=== PATIENT | female | born 1995 | race Caucasian/White ===

== ENCOUNTER 2017-03-07 13:10 | Outpatient (CLI) | payer BC ==
[~2017-03-07] VITALS: Ht 152.4 cm; Wt 45.9 kg
[2017-03-07 13:34] VITALS: BP 108/65; PULSE 85; RESP 16; Ht 152.4 cm; Wt 45.9 kg
--- NOTE | 2017-03-07 14:05 | PN ---
Date/Time of Note Date/Time of Note DATE: 03/07/17 TIME: 13:55 Assessment/Plan Assessment/Plan Assessment/Plan [facility] Progress Note Date of Service: 03/07/17 Location of Service: [facility] at [facility] Today's Assessment & Plan: Overall stable and doing well. Abdomen remains benign. No indications of major postoperative complications or wound problems. No indication for acute surgical intervention. With above assessment, I've recommended the following for today: 1. F/u with PCP 2. F/u with us prn Thank you again for your great care of this very pleasant patient and wonderful family. If there are any questions, please feel free to call me at [phone]. Nature of presenting problem: High severity Please note that, given the limited number of diagnoses or management options, the limited amount and/or complexity of data needed to be reviewed, and moderate risk of complications and/or morbidity or mortality, this qualifies as low complexity type of decision-making. Disclaimers: 1. Inadvertent spelling and grammatical errors are likely due to electronic health record (EHR)/dictation software used and do not reflect on the quality of delivered patient care. 2. The electronic timestamp recorded on this note does not necessarily reflect the actual date and time of the visit or the service. 3. Portions of this note may have been created through electronic templates and computer algorithms that might bring in information either from the system or from other physicians and providers. Please note that such information may or may not contain errors, the occurrence of which are outside of my control. In general (but not always) this happens either in the beginning or at the end of the note. The portion of the note that I have created are generally done in 1 continuous block of text, flanked at the beginning and at the end by " ", and entered into one field in the EHR. 4. There may be other unanticipated errors in the note that are outside of my control. I can only attest to the portions of the note that I have created. Updated Clinical Summary: Very pleasant and otherwise healthy 21 y/o lady, s/p lap appy at [facility] on for acute appendicitis an mesoappendicitis. Comorbidities: 1. Marijuana use, daily Subjective: No major events or complaints since dischage; no abd pain and not on pain medications; no n/v/d; no sob or cp; + bowel actiity; + activity Objective: Vitals: See below Exam: GENERAL: On exam, the patient was sitting up in a chair and appeared to be comfortable and in no acute distress. ABDOMEN: Soft, nontender and nondistended. Incision s are clean, dry and intact without any evidence of obvious underlying erythema, edema, discharge, or hernia. There are no peritoneal signs or guarding. SKIN: Skin appears to be pink and feels warm to touch. NEUROLOGIC: Patient is awake, alert, and follows commands appropriately. Exam/Review of Systems Vital Signs Vitals Vital Signs Date Time Temp Pulse Resp B/P Pulse Ox O2 Delivery O2 Flow Rate FiO2 03/07/17 13:34 98.7 85 16 108/65 98 Room Air ETHEL SHANKAR M.D. Mar 07, 2017 14:05
== END 2017-03-07 15:52 | disposition home or self-care (01) ==
LOC: HPC 13:10
PROVIDERS: ATTEND Transplant Surgery
DX: K35.80 Unspecified acute appendicitis (principal)
CPT/HCPCS: G0463